=== PATIENT | female | born 1980 | race Caucasian/White ===

== ENCOUNTER 2020-08-21 14:39 | Emergency (ER) | payer MEDICAID ==
[~2020-08-21] VITALS: Ht 162.6 cm; Wt 65.0 kg
[2020-08-21] MEDS ORDERED: HYDROCODONE/ACETAMINOPHEN 5/325MG TABLET PO STA (16:28)
[2020-08-21 17:15] VITALS: BP 126/86
[2020-08-21 17:16] LABS: BASOPHILS % 0.3 % (0.0-2.0); HEMATOCRIT. 38.3 % (36.0-48.0); HEMOGLOBIN. 12.9 g/dL (12.0-16.0); MEAN CORPUSCULAR HEMOGLOBIN 28.2 pg (28.0-32.0); MEAN CORPUSCULAR VOLUME 83.6 fL (81.0-99.0); MEAN PLATELET VOLUME 7.8 fl (7.4-10.4); MONOCYTES % 3.8 % (2.0-8.0); NEUTROPHILS % 59.9 % (40.0-76.0); PLATELET 304 x1000/uL (130-400); RED BLOOD CELL COUNT 4.58 mill/uL (4.2-5.4); RED CELL DISTRIBUTION WIDTH 14.1 % (11.6-14.6)
[2020-08-21 17:24] LABS: CHLORIDE 103 mEq/L (98-107)
[2020-08-21] MEDS ORDERED: IOHEXOL-300 100 ML BOTTLE ONE (20:17)
== END 2020-08-21 20:40 | disposition home or self-care (01) ==
LOC: ER 14:39
DX: S16.1XXA Strain of muscle, fascia and tendon at neck level, initial encounter (principal); S43.402A Unspecified sprain of left shoulder joint, initial encounter; R10.9 Unspecified abdominal pain; V43.52XA Car driver injured in collision with other type car in traffic accident, initial encounter; Y93.89 Activity, other specified; Y92.411 Interstate highway as the place of occurrence of the external cause
CPT/HCPCS: 36415; 71045; 72125; 73030; 73502; 74177; 80053; 81025; 83690; 85025; 99285; Q9967